=== PATIENT | female | born 1995 | race Two or more races ===

== ENCOUNTER 2016-12-05 18:51 | Emergency (ER) | payer OTHER ==
[~2016-12-05] VITALS: Ht 162.6 cm; Wt 54.0 kg
[2016-12-05] MEDS ORDERED: diphenhydrAMINE HCL 50 MG/ML VIAL IV ONE (19:00)
[2016-12-05] MEDS ORDERED: methylPREDNISolone SOD SUCC 125 MG/2ML VIAL ONE (19:00)
[2016-12-05] MEDS ORDERED: FAMOTIDINE/PF INJ 20 MG/2 ML VIAL IV ONE ×2 (19:00→19:01)
[2016-12-05] MEDS ORDERED: diphenhydrAMINE HCL 50 MG/ML VIAL ONE (19:00)
[2016-12-05] MEDS ORDERED: IV NS 0.9% 1,000 ML IV ONE (19:00)
[2016-12-05] MEDS ORDERED: methylPREDNISolone SOD SUCC 125 MG/2ML VIAL IV ONE (19:00)
[2016-12-05] MEDS ORDERED: IV SET PRIMARY 1 EA INFUS.SET MC ONE (19:01)
[2016-12-05] MEDS ORDERED: IV NS 0.9% 1,000 ML ONE (19:01)
[2016-12-05 20:24] VITALS: BP 132/76
== END 2016-12-05 20:25 | disposition home or self-care (01) ==
LOC: ER 18:54
DX: T78.40XA Allergy, unspecified, initial encounter (principal); J45.909 Unspecified asthma, uncomplicated
CPT/HCPCS: 96361; 96374; 96375; 99284; J1200; J2930; J3490; J7030